=== PATIENT | female | born 1975 | race Caucasian/White ===

== ENCOUNTER → 2025-01-17 | Outpatient (CLI) | payer OTHER, SELFPAY ==
--- NOTE | 2025-01-17 12:20 | NEURO ---
NCS and/or EMG Patient Report Ordering Doctor: Rosalba Saldana DATE OF SERVICE: 01/17/25 Jennifer presents for electrodiagnostic testing of the left upper limb. She reports numbness and tingling intermittently in the left hand. She reports pain in the left wrist. Electrodiagnostic findings: Left median motor nerve demonstrates normal distal latency, amplitude and conduction velocity. Left ulnar motor response is within normal limits. Normal left median and left ulnar F?wave. Sensory responses are within normal limits. Needle EMG testing was performed the left upper limb. All muscles tested showed no evidence of denervation with normal motor unit action potentials. Electrodiagnostic impression: This is a normal electrodiagnostic study of the left upper limb. There is no electrodiagnostic evidence for peripheral neuropathy, including carpal tunnel or cubital tunnel syndrome. There is no electrodiagnostic evidence for cervical radiculopathy [facility] Codes Neurology Neurology Interp Codes: 71088-10 Musc test done w/n test comp (interp) and 46373-07 Nrv cndj test 7-8 studies (interp)
== END | disposition home or self-care (01) ==
LOC: PSN 09:35
PROVIDERS: PCP Family Medicine; Referring Provider Physician Assistant; Visit Provider Physician Assistant
DX: R20.2 Paresthesia of skin (principal); M65.4 Radial styloid tenosynovitis [de Quervain]
CPT/HCPCS: 95886; 95910